=== PATIENT | female | born 1945 | race Caucasian/White ===

== ENCOUNTER → 2019-06-23 | Outpatient (CLI) | payer SELFPAY | PROVIDERS: Family Provider Family Medicine; Visit Provider Internal Medicine Medical Oncology | DX: D47.2 Monoclonal gammopathy (principal); I10 Essential (primary) hypertension ==

== ENCOUNTER 2019-12-22 10:12 | Outpatient (CLI) | payer MEDICARE, SELFPAY ==
--- NOTE | 2019-12-25 17:08 | ONC FU_ITS ---
Dr. Wallace Patient Follow-Up Note Patient: Amanda Alicia Unit #: [id number]: 1945 Dicatated By: Vincent Wallace M.D.Date of Visit:Dec 22, 2019 Onc Med Follow-up/Prog Note Chief Complaint: Monoclonal gammopathy. 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 According to available records, she was first found to have evidence of monoclonal gammopathy in January 2015 with her 24 hour urine protein electrophoresis at that time showing a total excretion of 135 mg of kappa free light chain. Bone marrow aspiration/biopsy on 02/23/2015 showed overall cellularity of 30%. Iron stores were 1+. The bone marrow differential reported 16% plasma cells. However, stain for CD138 showed less than 6% plasma cells. The records did not include any FISH studies or cytogenetics. I also did not get results of any serum protein electrophoresis studies. She was felt to have monoclonal gammopathy of undetermined significance. I had seen her initially on 10/18/2016. A protein electrophoresis prior to that visit showed IgG kappa paraprotein quantitating at 1.53 g/dL. Her further evaluation included CBC showing hemoglobin 11.1 g, white blood cell count 9100, and platelet count 325,000. Chem profile showed normal renal function with BUN 13 and creatinine 0.8 mg/dL and slightly low calcium at 8.2 mg/dL. Repeat protein electrophoresis showed IgG kappa paraprotein quantitating at 1.47 g/dL. The beta-2 microglobulin was normal at 0.260 mg/dL. Sedimentation rate was normal 19 mm/hour. Skeletal survey reported diffuse osteopenia with subtle focal lucency within the right tibial metadiaphysis which was felt to possibly reflect a lytic lesion. Given those findings, I opted to continue her on observation/expectant management. Her medical history is otherwise significant for hypertension and for a history of cardiac arrhythmia. She has had no other ongoing medical illnesses. Surgeries have been limited to tonsillectomy and cholecystectomy. She is a nonsmoker. INTERIM HISTORY: A repeat SPEP on 10/14/2017 showed slightly decreased M protein at 1.20 g/dL. She continued on observation/expectant management. As of May 2018 it had increased only slightly, to 1.31 g/dL, and in December 2018 it had further increased to 1.60 g/dL. There was no evidence of myeloma by clinical evaluation. She continued observation/expectant management. She is seen for a scheduled visit. She has been feeling pretty good generally. She says her energy is the same. She pretty much has normal activity. ECOG score is 0. She has good appetite. She has no fever or night sweats. She recently underwent surgery on both eyes which included cataract excisions and laser surgery. She has had no complications. She does not complain of shortness of breath, cough, or chest pain. She has no GI/ complaints other than a little bit of heartburn. 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 She has no other joint or bone pain. She has no focal neurologic symptoms. Medications: AmLODIPine Besylate 1 Tablet (of 10 mg) Oral daily, Atenolol (25 mg) Tablet Oral Take as Directed, Losartan Potassium 1 (100 mg) Tablet Oral daily Allergies: Codeine Sulfate, Diovan, and Sulfa Antibiotics. Review of Systems: Constitutional - Her energy is the same. She has normal activity. Appetite is good. She has gained a little weight. No fever, night sweats, or hot flashes. ECOG score is 0, Eyes - She had recent cataract excisions and laser surgery to both eyes, ENMT - No sinus congestion/drainage. No mouth sores. No sore throat or difficulty swallowing, Hematologic/Lymphatic - No abnormal bruising or bleeding, Respiratory - No shortness of breath. No cough. No pleuritic pain or hemoptysis, Cardiovascular - No angina pain. No palpitations, Gastrointestinal - No nausea or vomiting. She has a little bit of heartburn. No diarrhea or constipation. No blood in the stool or black stools, Genitourinary (F) - No dysuria or hematuria. No urinary frequency. No urgency or incontinence, Musculoskeletal - She has arthritis in her knees, but she has no pain with it, Integumentary - , Neurologic - No headache. She has had occasional lighthededness with low blood pressure. No numbness or tingling. No other focal neurologic symptoms, Psychiatric - She has had some depression since losing her . No insomnia. Vital Signs: Performed on Dec 22, 2019 12:07 Height - 64.50 in Weight - 184 lbs (HIGH) BSA - 1.90 sq.m BMI - 31.10 (HIGH) Temperature - 98.1 F (LOW) Pulse - 64 /min Respiration - 17 /min BP - 116/68 mm(hg) O2 Sat - 99 % Pain - 0 Physical Examination: Constitutional - She looks good generally, Eyes - Sclerae nonicteric. Conjunctivae clear, ENMT - No lesions noted in the oral cavity, Hematologic/Lymphatic - No cervical, clavicular, or axillary adenopathy, Respiratory - Lungs are clear with good air movement bilaterally, Cardiovascular - Heart rhythm is regular. There is a II/ systolic murmur. There is no gallop or rub noted, Abdomen - Soft. Liver and spleen are not enlarged. There is no abdominal mass or ascites noted and there is no inguinal adenopathy, Extremities - Mild pedal edema, Neurologic - No focal neurologic deficits noted. Lab/Imaging: Test performed on Dec 17, 2019 09:43 Glucose 105 mg/dL Protein, Total 7.5 g/dL Albumin, SPE 4.11 g/dL BUN 13 mg/dL Creatinine 0.71 mg/dL Cr Clearance (Est) 89.95 mL/min Sodium 136 mmol/L Potassium 4.3 mmol/L Chloride 102 mmol/L CO2 26 mmol/L Calcium 9.4 mg/dL Albumin 4.2 g/dL Bilirubin, Total 0.4 mg/dL Alkaline Phosphatase 98 IU/L AST (SGOT) 17 IU/L ALT (SGPT) 14 IU/L WBC 9.2 10^9/L RBC 4.13 10^12/L HGB 12.4 g/dL HCT 37.6 % MCV 91.0 fl MCH 30.0 pg MCHC 33.0 g/dL RDW 13.2 % Platelet Count 358 10^9/L MPV 9.9 fL Neutrophils (Gran) 6.06 10^9/L Lymphocytes 2.27 10^9/L Monocytes 0.68 10^9/L Eosinophils 0.12 10^9/L Basophils 0.02 10^9/L Manual Lymphocytes 25 % Manual Monocytes 7 % Manual Eosinophils 1 % Manual Basophils 0 % [place] / Lambda Ratio 3.50 Absolute Value Lambda Light Chain 13.37 [place] Light Chain 46.83 Jlvmy-9-enjdpytr 0.22 g/dL Xwafy-9-bgfofiyr 0.69 g/dL Beta Globulin 0.71 g/dL Gamma Globulin 1.82 g/dL SPE Interpretation No Significant changes in monoclonal proteinemia since prior study Impression: 1. 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 2. She has been borderline anemic. Her other medical illnesses include: 3. Hypertension. 4. She has history of cardiac arrhythmia. She has IgG kappa monoclonal gammopathy, but with no definite evidence of myeloma. She has been followed on observation/expectant management. As of December 2018 there was a significant increase in her M protein level, to 1.60 g/dL. However, by clinical evaluation there was still no evidence of myeloma, and she continued on observation/expectant management. As of June 2019 it had declined to 1.27 g/dL. On the current study the M protein appears stable at 1.39 g/dL. Her overall clinical status remains stable. Plan: She will continue on observation/expectant management. I will see her again in 6 months. Signed By: Vincent Wallace M.D. <<Signature on File>>
== END 2019-12-22 10:13 | disposition home or self-care (01) ==
LOC: ONCMED 10:12
PROVIDERS: PCP Family Medicine; Visit Provider Internal Medicine Medical Oncology
DX: D47.2 Monoclonal gammopathy (principal); D64.9 Anemia, unspecified; I10 Essential (primary) hypertension; Z86.79 Personal history of other diseases of the circulatory system
CPT/HCPCS: G0463

== ENCOUNTER 2021-01-11 12:06 | Outpatient (CLI) | payer MEDICARE, SELFPAY ==
--- NOTE | 2021-01-12 06:45 | ONC FU_ITS ---
Dr. Wallace Patient Follow-Up Note Patient: Amanda Aliica Unit #: [id number]: 1945 Dicatated By: Vincent Wallace M.D.Date of Visit:Jan 11, 2021 Onc Med Follow-up/Prog Note Chief Complaint: Monoclonal gammopathy. 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 According to available records, she was first found to have evidence of monoclonal gammopathy in January 2015 with her 24 hour urine protein electrophoresis at that time showing a total excretion of 135 mg of kappa free light chain. Bone marrow aspiration/biopsy on 02/23/2015 showed overall cellularity of 30%. Iron stores were 1+. The bone marrow differential reported 16% plasma cells. However, stain for CD138 showed less than 6% plasma cells. The records did not include any FISH studies or cytogenetics. I also did not get results of any serum protein electrophoresis studies. She was felt to have monoclonal gammopathy of undetermined significance. I had seen her initially on 10/18/2016. A protein electrophoresis prior to that visit showed IgG kappa paraprotein quantitating at 1.53 g/dL. Her further evaluation included CBC showing hemoglobin 11.1 g, white blood cell count 9100, and platelet count 325,000. Chem profile showed normal renal function with BUN 13 and creatinine 0.8 mg/dL and slightly low calcium at 8.2 mg/dL. Repeat protein electrophoresis showed IgG kappa paraprotein quantitating at 1.47 g/dL. The beta-2 microglobulin was normal at 0.260 mg/dL. Sedimentation rate was normal 19 mm/hour. Skeletal survey reported diffuse osteopenia with subtle focal lucency within the right tibial metadiaphysis which was felt to possibly reflect a lytic lesion. Given those findings, I opted to continue her on observation/expectant management. Her medical history is otherwise significant for hypertension and for a history of cardiac arrhythmia. She has had no other ongoing medical illnesses. Surgeries have been limited to tonsillectomy and cholecystectomy. She is a nonsmoker. INTERIM HISTORY: A repeat SPEP on 10/14/2017 showed slightly decreased M protein at 1.20 g/dL. She continued on observation/expectant management. As of May 2018 it had increased only slightly, to 1.31 g/dL, and in December 2018 it had further increased to 1.60 g/dL. There was no evidence of myeloma by clinical evaluation, and she continued expectant management. Her repeat SPEP in June 2019 showed a decline in the M protein to 1.27 g/dL and as of December 2019 remained stable at 1.39 g/dL. She is seen for a scheduled visit. She has been feeling a little more tired, but she remains active. There has been a lot going on with her family. She is also been having trouble with her blood pressure going up and down, and she says that makes her tired. Her ECOG score is 1. She has good appetite. She has no fever or night sweats. She has not had sore mouth or throat. She has a little bit of cough, attributable to medication. She has no shortness of breath or chest pain. She has had some nausea, also attributable to medication. Her acid reflux symptoms have improved taking HCl as needed. Bowel and bladder function have been okay. She has been having some pain in the right hip area. She has no other joint or bone pain. She has had a few headaches and she does tend to get dizzy when her blood pressure is high. She has no numbness/paresthesia or other focal neurologic symptoms. Medications: AmLODIPine Besylate 1 Tablet (of 10 mg) Oral daily, Atenolol (25 mg) Tablet Oral Take as Directed, Losartan Potassium 1 (100 mg) Tablet Oral daily Allergies: Codeine Sulfate, Diovan, and Sulfa Antibiotics. Vital Signs: Performed on Jan 11, 2021 13:42 Height - 64.50 in Weight - 186.4 lbs (HIGH) BSA - 1.91 sq.m BMI - 31.50 (HIGH) Temperature - 98.3 F (LOW) Pulse - 57 /min (LOW) Respiration - 18 /min BP - 177/77 mm(hg) (HIGH) O2 Sat - 97 % Pain - 0 Fatigue - 6 Physical Examination: Constitutional - She looks good generally, Eyes - Sclerae nonicteric. Conjunctivae clear, ENMT - No lesions noted in the oral cavity, Hematologic/Lymphatic - No cervical, clavicular, or axillary adenopathy, Respiratory - Lungs are clear with good air movement bilaterally, Cardiovascular - Heart rhythm is regular. There is a II/ systolic murmur. There is no gallop or rub noted, Abdomen - Soft. Liver and spleen are not enlarged. There is no abdominal mass or ascites noted and there is no inguinal adenopathy, Extremities - No edema, Neurologic - No focal neurologic deficits noted. Lab/Imaging: Test performed on Dec 14, 2020 06:32 Glucose 102 mg/dL Protein, Total 7.2 g/dL Albumin, SPE 3.7 g/dL BUN 15 mg/dL Creatinine 0.80 mg/dL Cr Clearance (Est) 81.29 mL/min Sodium 138 mmol/L Potassium 4.8 mmol/L Chloride 101 mmol/L CO2 27 mmol/L Calcium 9.1 mg/dL Albumin 3.8 g/dL Globulin 3.4 g/dL Bilirubin, Total 0.4 mg/dL Alkaline Phosphatase 99 IU/L AST (SGOT) 14 IU/L ALT (SGPT) 11 IU/L Sed Rate 17 mm/hr WBC 9.0 10^9/L RBC 4.05 10^12/L HGB 12.4 g/dL HCT 37.7 % MCV 93.1 fl MCH 30.6 pg MCHC 32.9 g/dL RDW 12.5 % Platelet Count 331 10^9/L MPV 10.2 fL Neutrophils (Gran) 6084 10^9/L Lymphocytes 2214 10^9/L Monocytes 576 10^9/L Eosinophils 108 10^9/L Basophils 18 10^9/L Manual Lymphocytes 24.6 % Manual Monocytes 6.4 % Manual Eosinophils 1.2 % Manual Basophils 0.2 % [place] / Lambda Ratio 3.15 Absolute Value Lambda Light Chain 14.5 [place] Light Chain 45.7 Oqcav-7-ruyvviys 0.3 g/dL Iicuj-8-vvczwkcl 0.6 g/dL Beta Globulin 0.4 g/dL Gamma Globulin 1.9 g/dL SPE Interpretation restricted band (M-spike) migrating in the gamma region Problem List: 1. 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 2. Hypertension. 3. She has history of cardiac arrhythmia. 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 She has been borderline anemic. She has IgG kappa monoclonal gammopathy, but with no definite evidence of myeloma. She has been followed on observation/expectant management. As of December 2018 there was a significant increase in her M protein level, to 1.60 g/dL. However, by clinical evaluation there was still no evidence of myeloma, and she continued on observation/expectant management. As of June 2019 it had declined to 1.27 g/dL and in December 2019 the M protein remained stable at 1.39 g/dL. On the current protein electrophoresis study, the M protein is back up to 1.60 g/dL, but she remained stable clinically with no evidence of myeloma. As such, she will continue on expectant management. She will be scheduled for a follow-up visit in 1 year. Signed By: Vincent Wallace M.D. <<Signature on File>>
== END 2021-01-11 12:07 | disposition home or self-care (01) ==
LOC: ONCMED 12:08
PROVIDERS: PCP Family Medicine; Visit Provider Internal Medicine Medical Oncology
DX: D47.2 Monoclonal gammopathy (principal); I10 Essential (primary) hypertension; I49.9 Cardiac arrhythmia, unspecified; Z79.899 Other long term (current) drug therapy
CPT/HCPCS: G0463

== ENCOUNTER → 2021-09-06 11:24 | Outpatient (BNVA) | payer MEDICARE, SELFPAY | PROVIDERS: PCP Family Medicine; Visit Provider Internal Medicine Cardiovascular Disease | DX: R80.3 Bence Jones proteinuria (principal); I49.9 Cardiac arrhythmia, unspecified; I10 Essential (primary) hypertension; R07.89 Other chest pain | CPT/HCPCS: 99213 ==

== ENCOUNTER 2022-03-01 13:14 | Oncology outpatient (recurring) (ONCR) | payer MEDICARE, SELFPAY ==
[2022-02-22 12:08] LABS: Basophils % 0.2 %; Eosinophils # 0.1 10^3/uL (0.0-0.8); Eosinophils % 1.2 %; Hematocrit 35.8 % (37.0-47.0); Hemoglobin 11.3 g/dL (11.5-15.3); Lymphocytes # 2.5 10^3/uL (0.8-4.8); Lymphocytes % 22.2 %; Mean Corpuscular HGB Conc 31.6 g/dL (30.0-36.0); Mean Corpuscular Hemoglobin 29.5 pg (28.0-34.0); Mean Corpuscular Volume 93.5 fl (81-99); Mean Platelet Volume 9.3 fL (7.4-10.4); Monocytes # 0.8 10^3/uL (0.2-0.9); Monocytes % 7.4 %; Neutrophils # 7.85 10^3/uL (1.8-7.7); Neutrophils % 68.6 %; Nucleated Red Blood Cells % 0 %; Platelet Count 407 10^3/cmm (130-400); Red Blood Count 3.83 10^6/uL (4.1-5.3); Red Cell Distribution Width 13.4 % (12.1-15.1); White Blood Count 11.4 10^3/uL (4.0-10.0)
[2022-02-22 12:20] LABS: Erythrocyte Sedimentation Rate 33 mm/hr (0-15)
[2022-02-22 12:25] LABS: Alanine Aminotransferase 10 U/L (0-33); Albumin Level 3.6 g/dL (3.5-5.2); Alkaline Phosphatase 116 U/L (35-105); Anion Gap 14.3 (5-19); Aspartate Amino Transferase 13 U/L (0-32); Blood Urea Nitrogen 11 mg/dL (8-23); Calcium 9.1 mg/dL (8.5-10.5); Carbon Dioxide 26 mmol/L (22-29); Chloride 104 mmol/L (98-107); Globulin 4.3 g/dL (1.3-4.6); Glucose 92 mg/dL (65-115); Immunoglobulin IGA 62 mg/dL (70-400); Immunoglobulin IGG 3074 mg/dL (700-1600); Osmolality Calculated 289 mOsm/kg (285-295); Potassium 4.3 mmol/L (3.5-5.1); Sodium 140 mmol/L (136-145); Total Bilirubin 0.4 mg/dL (0.15-1.2); Total Protein 7.9 g/dL (6.6-8.7)
[2022-02-22 12:45] LABS: Immunoglobulin IGM < 25 mg/dL (40-230)
[2022-02-23 09:28] LABS: PROTEIN, TOTAL 7.7 g/dL (6.1-8.1)
[2022-02-23 11:48] LABS: CREATININE, 24 HOUR URINE 0.59 g/24 h (0.50-2.15); PROTEIN, TOTAL, 24 HR UR 80 mg/24 h (<150); Protein/Creatinine Ratio 0.136 (< OR = 0.114); Protein/Creatinine Ratio 136 mg/g creat (< OR = 114)
[2022-02-23 12:22] LABS: KAPPA LIGHT CHAIN, FREE, SERUM 72.3 mg/L (3.3-19.4); KAPPA/LAMBDA LIGHT CHAINS FREE 4.73 (0.26-1.65); LAMBDA LIGHT CHAIN, FREE, SERU 15.3 mg/L (5.7-26.3)
[2022-02-26 10:23] LABS: ABNORMAL PROTEIN BAND 1 12 mg/24 h (NONE DETECTED); ALBUMIN 19 %; ALPHA-1-GLOBULINS 9 %; ALPHA-2-GLOBULINS 10 %; BETA GLOBULINS 20 %; GAMMA GLOBULINS 42 %
[2022-02-26 10:26] LABS: ALBUMIN 3.5 g/dL (3.8-4.8); ALPHA 1 GLOBULIN 0.4 g/dL (0.2-0.3); ALPHA 2 GLOBULIN 0.7 g/dL (0.5-0.9); BETA 1 GLOBULIN 0.5 g/dL (0.4-0.6); BETA 2 GLOBULIN 0.2 g/dL (0.2-0.5); GAMMA GLOBULIN 2.4 g/dL (0.8-1.7)
== END 2022-03-07 23:59 | disposition home or self-care (01) ==
PROVIDERS: PCP Family Medicine; Visit Provider Internal Medicine Medical Oncology
DX: D47.2 Monoclonal gammopathy (principal); M25.50 Pain in unspecified joint
CPT/HCPCS: 36415; 80053; 82784; 83883; 84155; 84156; 84165; 84166; 85025; 85651; 86334; 99215

== ENCOUNTER → 2022-04-13 09:06 | Outpatient (BNVA) | payer MEDICARE, SELFPAY | PROVIDERS: PCP Family Medicine; Visit Provider Nurse Practitioner Family | DX: I49.9 Cardiac arrhythmia, unspecified (principal) | CPT/HCPCS: 99213 ==

== ENCOUNTER 2022-06-13 08:58 | Oncology outpatient (recurring) (ONCR) | payer MEDICARE, SELFPAY ==
[2022-06-11 15:06] LABS: Basophils % 0.2 %; Eosinophils # 0.1 10^3/uL (0.0-0.8); Eosinophils % 0.7 %; Hematocrit 32.2 % (37.0-47.0); Hemoglobin 10.3 g/dL (11.5-15.3); Lymphocytes # 2.3 10^3/uL (0.8-4.8); Mean Corpuscular Hemoglobin 29.5 pg (28.0-34.0); Mean Corpuscular Volume 92.3 fl (81-99); Mean Platelet Volume 8.7 fL (7.4-10.4); Monocytes # 0.7 10^3/uL (0.2-0.9); Monocytes % 6.6 %; Neutrophils # 7.84 10^3/uL (1.8-7.7); Neutrophils % 71.1 %; Nucleated Red Blood Cells % 0 %; Platelet Count 402 10^3/cmm (130-400); Red Blood Count 3.49 10^6/uL (4.1-5.3); Red Cell Distribution Width 14.3 % (12.1-15.1)
[2022-06-11 15:11] LABS: Erythrocyte Sedimentation Rate 26 mm/hr (0-15)
[2022-06-11 15:29] LABS: Alanine Aminotransferase 12 U/L (0-33); Albumin Level 3.6 g/dL (3.5-5.2); Alkaline Phosphatase 106 U/L (35-105); Anion Gap 13.9 (5-19); Aspartate Amino Transferase 17 U/L (0-32); Blood Urea Nitrogen 10 mg/dL (8-23); Calcium 9.2 mg/dL (8.5-10.5); Carbon Dioxide 26 mmol/L (22-29); Chloride 101 mmol/L (98-107); Globulin 4.8 g/dL (1.3-4.6); Glucose 101 mg/dL (65-115); Immunoglobulin IGA 64 mg/dL (70-400); Immunoglobulin IGG 3315 mg/dL (700-1600); Osmolality Calculated 283 mOsm/kg (285-295); Potassium 3.9 mmol/L (3.5-5.1); Sodium 137 mmol/L (136-145); Total Bilirubin 0.3 mg/dL (0.15-1.2); Total Protein 8.4 g/dL (6.6-8.7)
[2022-06-11 15:56] LABS: Immunoglobulin IGM < 25 mg/dL (40-230)
[2022-06-11 16:48] LABS: Iron 36 ug/dL (37-145); Percent Saturation 14.2 % (20-50); Total Iron Binding Capacity 252 mcg/dl; Unsaturated Iron Binding 216 ug/dL (112-347)
[2022-06-11 16:53] LABS: Vitamin B12 650 pg/mL (232-1245)
[2022-06-12 06:50] LABS: PROTEIN, TOTAL 8.1 g/dL (6.1-8.1)
[2022-06-12 11:45] LABS: KAPPA LIGHT CHAIN, FREE, SERUM 68.4 mg/L (3.3-19.4); KAPPA/LAMBDA LIGHT CHAINS FREE 3.93 (0.26-1.65); LAMBDA LIGHT CHAIN, FREE, SERU 17.4 mg/L (5.7-26.3)
[2022-06-12 16:23] LABS: ABNORMAL PROTEIN BAND 1 2.2 g/dL (NONE DETECTED); ALBUMIN 3.5 g/dL (3.8-4.8); ALPHA 1 GLOBULIN 0.5 g/dL (0.2-0.3); ALPHA 2 GLOBULIN 0.8 g/dL (0.5-0.9); BETA 1 GLOBULIN 0.5 g/dL (0.4-0.6); BETA 2 GLOBULIN 0.3 g/dL (0.2-0.5); GAMMA GLOBULIN 2.5 g/dL (0.8-1.7)
[2022-06-13 10:43] LABS: Total Volume, Urine 1925 mL
[2022-06-13 10:58] LABS: Urine Total Protein 5.7 mg/dL (0-150); Urine Total Protein 24 Hour 109.7 mg/24hr (0-150)
[2022-06-15 15:04] LABS: PROTEIN, TOTAL, 24 HR UR 96 mg/24 h (<150); Protein/Creatinine Ratio 0.106 (<0.150); Protein/Creatinine Ratio 106 mg/g creat (<150)
[2022-06-19 08:55] LABS: ALBUMIN 0 %; ALPHA-1-GLOBULINS 0 %; ALPHA-2-GLOBULINS 0 %; BETA GLOBULINS 0 %; GAMMA GLOBULINS 0 %
== END 2022-07-07 23:59 | disposition home or self-care (01) ==
PROVIDERS: PCP Family Medicine; Visit Provider Internal Medicine Medical Oncology
DX: D47.2 Monoclonal gammopathy (principal)
CPT/HCPCS: 36415; 80053; 82607; 82784; 83540; 83550; 83883; 84155; 84156; 84165; 84166; 85025; 85651; 86334; 99214

== ENCOUNTER → 2022-08-29 10:20 | Outpatient (BNVA) | payer MEDICARE, SELFPAY | PROVIDERS: PCP Family Medicine; Visit Provider Internal Medicine Cardiovascular Disease | DX: I49.9 Cardiac arrhythmia, unspecified (principal); R55 Syncope and collapse; R07.89 Other chest pain; I10 Essential (primary) hypertension; D64.9 Anemia, unspecified | CPT/HCPCS: 99214 ==

== ENCOUNTER 2022-12-18 13:59 | Outpatient (CLI) | payer MEDICARE, SELFPAY ==
[2022-12-19 16:23] LABS: CREATININE, 24 HOUR URINE 0.96 g/24 h (0.50-2.15); PROTEIN, TOTAL, 24 HR UR 99 mg/24 h (<150); Protein/Creatinine Ratio 0.103 (<0.150); Protein/Creatinine Ratio 103 mg/g creat (<150)
[2022-12-20 14:43] LABS: ABNORMAL PROTEIN BAND 1 16 mg/24 h (NONE DETECTED); ALBUMIN 26 %; ALPHA-1-GLOBULINS 4 %; ALPHA-2-GLOBULINS 11 %; BETA GLOBULINS 16 %; GAMMA GLOBULINS 43 %
== END 2022-12-18 14:00 | disposition home or self-care (01) ==
LOC: LAB 14:02
PROVIDERS: PCP Family Medicine; Visit Provider Internal Medicine Medical Oncology
DX: D47.2 Monoclonal gammopathy (principal); D64.9 Anemia, unspecified
CPT/HCPCS: 82570; 84166; 86335

== ENCOUNTER 2022-12-24 12:27 | Oncology outpatient (recurring) (ONCR) | payer MEDICARE, SELFPAY ==
[2022-12-17 13:38] VITALS: BP 127/63; PULSE 70; RESP 16; TEMP 36.6; O2SAT 99
--- NOTE | 2022-12-17 13:45 | PC.NURSE ---
lab drawn via [facility] x1 attempt
[2022-12-17 13:55] LABS: Basophils % 0.2 %; Eosinophils # 0.1 10^3/uL (0.0-0.8); Eosinophils % 0.9 %; Hemoglobin 11.6 g/dL (11.5-15.3); Lymphocytes # 2.3 10^3/uL (0.8-4.8); Lymphocytes % 21.6 %; Mean Corpuscular HGB Conc 32.2 g/dL (30.0-36.0); Mean Corpuscular Hemoglobin 29.8 pg (28.0-34.0); Mean Corpuscular Volume 92.5 fl (81-99); Monocytes # 0.7 10^3/uL (0.2-0.9); Monocytes % 6.2 %; Neutrophils # 7.39 10^3/uL (1.8-7.7); Neutrophils % 70.8 %; Nucleated Red Blood Cells % 0 %; Platelet Count 398 10^3/cmm (130-400); Red Blood Count 3.89 10^6/uL (4.1-5.3); Red Cell Distribution Width 13.2 % (12.1-15.1); White Blood Count 10.4 10^3/uL (4.0-10.0)
[2022-12-17 14:18] LABS: Alanine Aminotransferase 10 U/L (0-33); Albumin Level 3.7 g/dL (3.5-5.2); Alkaline Phosphatase 108 U/L (35-105); Aspartate Amino Transferase 15 U/L (0-32); Blood Urea Nitrogen 13 mg/dL (8-23); Calcium 9.1 mg/dL (8.5-10.5); Carbon Dioxide 26 mmol/L (22-29); Chloride 101 mmol/L (98-107); Creatinine Clr Calc Pharmacy 61.4308; Globulin 4.2 g/dL (1.3-4.6); Glucose 108 mg/dL (65-115); Immunoglobulin IGA 58 mg/dL (70-400); Immunoglobulin IGG 2483 mg/dL (700-1600); Osmolality Calculated 285 mOsm/kg (285-295); Sodium 137 mmol/L (136-145); Total Bilirubin 0.3 mg/dL (0.15-1.2); Total Protein 7.9 g/dL (6.6-8.7)
[2022-12-17 14:32] LABS: Immunoglobulin IGM < 25 mg/dL (40-230)
[2022-12-18 15:03] LABS: KAPPA LIGHT CHAIN, FREE, SERUM 69.6 mg/L (3.3-19.4); KAPPA/LAMBDA LIGHT CHAINS FREE 4.09 (0.26-1.65)
[2022-12-19 01:31] LABS: PROTEIN, TOTAL 7.6 g/dL (6.1-8.1)
[2022-12-20 13:10] LABS: ABNORMAL PROTEIN BAND 1 1.9 g/dL (NONE DETECTED); ALBUMIN 3.7 g/dL (3.8-4.8); ALPHA 1 GLOBULIN 0.4 g/dL (0.2-0.3); ALPHA 2 GLOBULIN 0.6 g/dL (0.5-0.9); BETA 1 GLOBULIN 0.4 g/dL (0.4-0.6); BETA 2 GLOBULIN 0.2 g/dL (0.2-0.5); GAMMA GLOBULIN 2.3 g/dL (0.8-1.7)
== END 2023-01-04 23:59 | disposition home or self-care (01) ==
PROVIDERS: PCP Family Medicine; Visit Provider Internal Medicine Medical Oncology
DX: D47.2 Monoclonal gammopathy (principal)
CPT/HCPCS: 36415; 80053; 82784; 83883; 84155; 84165; 85025; 86334; 99214

== ENCOUNTER 2023-01-14 12:13 | Outpatient (CLI) | payer MEDICARE, SELFPAY ==
--- NOTE | 2023-01-14 12:19 | XRR_ITS ---
PROCEDURE INFORMATION: Exam: XR Osseous Survey; Complete Axial And Appendicular Skeleton Exam date and time: 01/14/2023 12:31 PM Age: 77 years old Clinical indication: Condition or disease; Condition/disease: Monoclonal gammopathy; Prior surgery; Surgery date: 6+ months; Surgery type: Gallbladder, appendix; Additional info: History of monoclonal gammopathy TECHNIQUE: Imaging protocol: Radiological examination. Complete osseous survey. Axial and appendicular skeleton. COMPARISON: No relevant prior studies available. FINDINGS: Bones/joints: No fracture. No suspicious lytic or blastic lesions. Mild degenerative changes throughout the appendicular skeleton. Mild-moderate degenerative changes lower lumbar spine with some disc space narrowing, endplate sclerosis and facet arthrosis. Soft tissues: Unremarkable. XR/XR bone survey* [id number] IMPRESSION: No compelling radiographic evidence of multiple myeloma.
== END 2023-01-14 12:14 | disposition home or self-care (01) ==
PROVIDERS: PCP Family Medicine; Visit Provider Nurse Practitioner Family
DX: D47.2 Monoclonal gammopathy (principal)
CPT/HCPCS: 77075

== ENCOUNTER → 2023-02-13 10:00 | Outpatient (BNVA) | payer MEDICARE, SELFPAY | PROVIDERS: PCP Family Medicine; Visit Provider Internal Medicine Cardiovascular Disease | DX: I49.9 Cardiac arrhythmia, unspecified (principal); I10 Essential (primary) hypertension; R07.89 Other chest pain | CPT/HCPCS: 99214 ==

== ENCOUNTER 2023-06-12 16:45 | Outpatient (CLI) | payer MEDICARE, SELFPAY ==
[2023-06-14 15:51] LABS: CREATININE, 24 HOUR URINE 0.27 g/24 h (0.50-2.15); PROTEIN, TOTAL, 24 HR UR 35 mg/24 h (<150); Protein/Creatinine Ratio 0.132 (<0.150); Protein/Creatinine Ratio 132 mg/g creat (<150)
[2023-06-17 08:55] LABS: ALBUMIN 0 %; ALPHA-1-GLOBULINS 0 %; ALPHA-2-GLOBULINS 0 %; BETA GLOBULINS 0 %; GAMMA GLOBULINS 0 %
== END 2023-06-12 16:46 | disposition home or self-care (01) ==
LOC: LAB 16:47
PROVIDERS: PCP Family Medicine; Visit Provider Internal Medicine Medical Oncology
DX: D47.2 Monoclonal gammopathy (principal)
CPT/HCPCS: 84156; 84166

== ENCOUNTER 2023-06-18 14:49 | Oncology outpatient (recurring) (ONCR) | payer MEDICARE, SELFPAY ==
[2023-06-11 14:02] VITALS: BP 133/62; PULSE 64; RESP 16; TEMP 36.4; O2SAT 96
[2023-06-11 14:34] LABS: Basophils % 0.2 %; Eosinophils # 0.1 10^3/uL (0.0-0.8); Eosinophils % 1.4 %; Hematocrit 36.4 % (36-47); Lymphocytes # 2.4 10^3/uL (0.8-4.8); Lymphocytes % 24.7 %; Mean Corpuscular HGB Conc 32.1 g/dL (30-55); Mean Corpuscular Hemoglobin 30.4 pg (27-33); Mean Corpuscular Volume 94.5 fl (85-98); Mean Platelet Volume 9.3 fL (7.4-10.4); Monocytes # 0.7 10^3/uL (0.2-0.9); Monocytes % 7.3 %; Neutrophils # 6.43 10^3/uL (1.8-7.7); Neutrophils % 66.1 %; Nucleated Red Blood Cells % 0 %; Platelet Count 358 10^3/cmm (157-399); Red Blood Count 3.85 10^6/uL (3.85-5.65); Red Cell Distribution Width 13.2 % (12.1-15.1); White Blood Count 9.74 10^3/uL (3.29-11.43)
[2023-06-11 14:54] LABS: Alanine Aminotransferase 10 U/L (0-33); Albumin Level 3.8 g/dL (3.5-5.2); Alkaline Phosphatase 101 U/L (35-105); Anion Gap 13.6 (5-19); Aspartate Amino Transferase 14 U/L (0-32); Blood Urea Nitrogen 16 mg/dL (8-23); Calcium 9.3 mg/dL (8.5-10.5); Carbon Dioxide 26 mmol/L (22-29); Chloride 105 mmol/L (98-107); Glucose 92 mg/dL (65-115); Immunoglobulin IGA 56 mg/dL (70-400); Immunoglobulin IGG 2410 mg/dL (700-1600); Osmolality Calculated 291 mOsm/kg (285-295); Potassium 4.6 mmol/L (3.5-5.1); Sodium 140 mmol/L (136-145); Total Bilirubin 0.3 mg/dL (0.15-1.2); Total Protein 7.8 g/dL (6.6-8.7)
[2023-06-11 14:55] LABS: Immunoglobulin IGM < 25 mg/dL (40-230)
[2023-06-12 10:45] LABS: PROTEIN, TOTAL 7.7 g/dL (6.1-8.1)
[2023-06-12 16:16] LABS: ABNORMAL PROTEIN BAND 1 1.7 g/dL (NONE DETECTED); ALBUMIN 3.9 g/dL (3.8-4.8); ALPHA 1 GLOBULIN 0.4 g/dL (0.2-0.3); ALPHA 2 GLOBULIN 0.6 g/dL (0.5-0.9); BETA 1 GLOBULIN 0.4 g/dL (0.4-0.6); BETA 2 GLOBULIN 0.3 g/dL (0.2-0.5); GAMMA GLOBULIN 2.2 g/dL (0.8-1.7)
[2023-06-13 14:50] LABS: LAMBDA LIGHT CHAIN, FREE, SERU 16.4 mg/L (5.7-26.3)
== END 2023-07-07 23:59 | disposition home or self-care (01) ==
PROVIDERS: PCP Family Medicine; Visit Provider Internal Medicine Medical Oncology
DX: D47.2 Monoclonal gammopathy (principal); D64.9 Anemia, unspecified; Z79.899 Other long term (current) drug therapy
CPT/HCPCS: 36415; 80053; 82784; 83883; 84155; 84165; 85025; 86334; 99213